=== PATIENT | male | born 1995 | race Caucasian/White ===

== ENCOUNTER 2018-07-15 11:53 | Emergency (ER) | payer OTHER, SELFPAY ==
[2018-07-15 12:01] VITALS: BP 143/79; PULSE 79; RESP 18; TEMP 36.6; O2SAT 100
--- NOTE | 2018-07-15 12:40 | PC.NURSE ---
currently denies SI/HI plan. States 'it's there all the time'. Cooperative w/ staff. Denies need / want to go to any type of detox or psychiatric treatment. a/o x 3. No acute distress.
[2018-07-15] MEDS: SODIUM CHLORIDE 0.9% 1,000 ML 1000 ML IV (12:43)
[2018-07-15 12:44] LABS: Add Manual Diff / Slide Review NO; Basophils Percent Auto 0.8 % (0-2); Eosinophils Percent Auto 1.8 % (2-4); Hematocrit 46.3 % (41-53); Hemoglobin 16.1 g/dL (13.5-17.5); Lymphocytes Percent Auto 30.8 % (25-40); Mean Corpuscular HGB Conc 34.8 % (30-36); Mean Corpuscular Hemoglobin 32.5 PG (26-34); Mean Corpuscular Volume 93.3 fL (80-100); Monocytes Percent Auto 11.2 % (3-14); Neutrophils Absolute Auto 3500 /uL (3000-5900); Neutrophils Percent Auto 55.4 % (50-75); Platelet Count 355 X10^3/uL (150-400); Red Blood Cell Count 4.96 X10^6/uL (4.5-5.9); Red Cell Distribution Width 13.3 % (11.6-14.8); White Blood Cell Count 6.4 X10^3/uL (4.5-11.0)
[2018-07-15 12:54] LABS: Alanine Aminotransferase 28 IU/L (21-72); Albumin 5.1 g/dL (3.5-5.0); Albumin Globulin Ratio 1.8 (1.0-2.8); Alkaline Phosphatase 58 U/L (38-126); Aspartate Aminotransferase 53 IU/L (17-59); Bilirubin Unconjugated 0.7 mg/dL (0.0-1.1); Blood Urea Nitrogen 12 mg/dL (9-20); Carbon Dioxide 34 mmol/L (22-32); Chloride 100 mmol/L (98-107); Estimated Glomerular Filt Rate > 60.0 mL/min (>60); Ethanol (ETOH) < 10 mg/dL; Globulin 2.9 g/dL (1.7-4.1); Glucose 88 mg/dL (70-100); HEMOLYSIS < 15 (0-50); Lipase 38 U/L (23-300); Potassium 4.1 mmol/L (3.4-5.1); Sodium 144 mmol/L (137-145)
[2018-07-15 13:08] LABS: Urine Amphetamines Negative (Negative); Urine Barbiturates Negative (Negative); Urine Benzodiazepines Negative (Negative); Urine Cocaine Negative (Negative); Urine MDMA Negative (Negative); Urine Methadone Negative (Negative); Urine Methamphetamines Negative (Negative); Urine Morphine/Opi cutoff 2000 Negative (Negative); Urine Oxycodone Negative (Negative); Urine Phencyclidine Negative (Negative); Urine Tetrahydrocannabinol Positive (Negative); Urine Tricyclic Antidepressant Negative (Negative)
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
--- NOTE | 2018-07-15 14:05 | PC.NURSE ---
Pt requesting to leave. States he has an appointment w/ Dr. Monroe who which he has a long standing relationship on Monday. Pt denies SI/HI plan stating that he has a friend he is going to stay with and would return if he felt he was going to act on any suicidal thought. Pt a/o x 3. No acute distress. Taking po food and fluids.
[2018-07-15 14:06] VITALS: BP 122/71; PULSE 88; RESP 14; O2SAT 99
== END 2018-07-15 14:09 | disposition home or self-care (01) ==
PROVIDERS: Emergency Provider Nurse Practitioner Family; Family Provider Pediatrics; PCP Pediatrics
DX: R45.851 Suicidal ideations (principal); F19.10 Other psychoactive substance abuse, uncomplicated
CPT/HCPCS: 36591; 80053; 80076; 80305; 80320; 81003; 83690; 83735; 85025; 96360; 99283; 99284

== ENCOUNTER → 2018-07-18 14:49 | Outpatient (CLI) | payer OTHER, SELFPAY ==
--- NOTE | 2018-07-18 14:51 | DI.RAD.S_ITS ---
PROCEDURE: XR RIBS LT 2V INDICATIONS: Left rib pain TECHNIQUE: 2 views of the left ribs were acquired. COMPARISON: None. FINDINGS: Surgical changes and devices: None. Bones and chest wall: No fractures or dislocations. No suspicious bony lesions. Overlying soft tissues appear unremarkable. Lungs and pleura: The visualized lung appears clear. No pleural effusions or pneumothorax are visible. IMPRESSION: No radiographically visible rib fracture seen. Dictated by: Javier Burns M.D. on 07/18/2018 at 15:52 Approved by: Javier Burns M.D. on 07/18/2018 at 15:54
--- NOTE | 2018-07-18 14:51 | DI.RAD.S_ITS ---
PROCEDURE: XR CHEST 2V INDICATIONS: Left rib pain TECHNIQUE: 2 views of the chest were acquired. COMPARISON: None. FINDINGS: Surgical changes and devices: None. Lungs and pleura: No pleural effusions or pneumothorax. Lungs are clear. Mediastinum: Mediastinal contours are normal. Heart size is normal. Bones and chest wall: No suspicious bony abnormalities. Soft tissues appear unremarkable. IMPRESSION: No acute disease. Dictated by: Javier Burns M.D. on 07/18/2018 at 15:54 Approved by: Javier Burns M.D. on 07/18/2018 at 15:55
== END ==
PROVIDERS: Family Provider Pediatrics; PCP Pediatrics; Visit Provider Internal Medicine
DX: R07.81 Pleurodynia (principal)
CPT/HCPCS: 71046; 71100

== ENCOUNTER 2018-07-19 11:28 | Emergency (ER) | payer OTHER, SELFPAY ==
[2018-07-19 11:43] VITALS: BP 154/87; PULSE 81; RESP 20; TEMP 37.1; O2SAT 96; BMI 23.6
--- NOTE | 2018-07-19 12:33 | ED.ALCOHOL ---
HPI - Alcohol <Nemo Dailey PA-C - Last Filed: 07/19/18 22:11> General Chief Complaint: Toxicology Problem Stated Complaint: alcoholic wants to detox Time Seen by Provider: 07/19/18 12:33 Source: patient Mode of arrival: ambulatory Limitations: no limitations History of Present Illness HPI narrative: This 21 year old male who has a history of anxiety, depression, and alcohol abuse comes in with his mom today requesting help with getting in to detox/rehab. He admits that he has been drinking today, states he had a shot of vodka when he woke up this morning, then has had 6-7 beers since. He states that he does not feel sick, not shaky, sweaty, has not had nausea or vomiting. He has never had seizures or needed hospitalization for ETOH symptoms. He states that he can't tell me how much he drinks in a typical day I drink so much I can not remember. He states that he also uses meth, cocaine, and THC and is a regular smoker. He has a history of some heroin and opioid use in the past as well and is up front about this. He states he is healthy other than his depression and anxiety. He has a history of suicidal ideation and admits to depression, not feeling suicidal at this moment. Related Data Home Medications Medication Instructions Recorded Confirmed No Known Home Medications 07/19/18 07/19/18 Allergies Allergy/AdvReac Type Severity Reaction Status Date / Time No Known Drug Allergies Allergy Verified 07/18/18 14:21 Review of Systems <Nemo Dailey PA-C - Last Filed: 07/19/18 22:11> Review of Systems All systems reviewed & are unremarkable except as noted in HPI and below PFSH <Nemo Dailey PA-C - Last Filed: 07/19/18 22:11> Comment: history of EtOH and multiple substance abuse Exam <Nemo Dailey PA-C - Last Filed: 07/19/18 22:11> Narrative Exam Narrative: GENERAL APPEARANCE: Patient resting comfortably, in no distress. smells mild of EtOH, no diaphoresis HEENT: PERRL, EOMI, no scleral icterus NECK: Supple LUNGS: Clear to auscultation bilaterally. HEART: Rate and rhythm regular, normal S1 and S2, no S3 or S4. ABDOMEN: Soft, nontender, nondistended, bowel sounds present x 4 quadrants EXTREMITIES: No edema, no cyanosis DERMATOLOGIC: No jaundice or exanthem NEUROLOGIC: Alert, reasonable historian. No tremulousness Initial Vital Signs Initial Vital Signs: Vital Signs Temperature 98.7 F 07/19/18 11:43 Pulse Rate 81 07/19/18 11:43 Respiratory Rate 20 07/19/18 11:43 Blood Pressure 154/87 H 07/19/18 11:43 Pulse Oximetry 96 07/19/18 11:43 <Tammy Britt DO - Last Filed: 07/20/18 08:51> Initial Vital Signs Initial Vital Signs: Vital Signs Temperature 98.7 F 07/19/18 11:43 Pulse Rate 81 07/19/18 11:43 Respiratory Rate 20 07/19/18 11:43 Blood Pressure 154/87 H 07/19/18 11:43 Pulse Oximetry 96 07/19/18 11:43 Course <Nemo Dailey PA-C - Last Filed: 07/19/18 22:11> Additional Information: Our care management/rn social services has worked on possible placement for alcohol/detox while patient is here today. Crisis Center may have an opening tonight, and he was scheduled for follow-up with his psychiatrist tomorrow. During that discussion he did admit to suicidal ideation, which he is had in the past. He states that he is actively suicidal currently. He states that he does not have a home now but does have resources for a hotel. He is not allowed in the family house at this point and does not feel that he would be safe if discharged. he states that he would consider suffocating himself, or getting drunk and starting himself on fire. he also states that he does hear voices telling him to hurt himself. Care management is currently working on mental health placement options. Our care management rn social services was able to procure placement at [facility] in [place]. Patient is here voluntarily and his parents are agreeable with driving him from here. Accepting physician Montrell Yee M.D. Patient is discharged with his parents with instructions to report immediately to [place] (admit time planned for 12 a.m.). Notes and labwork faxed to intake. Patient has had ativan while here for mild agitation at times. He has been eating, drinking, has not demonstrated any tremor, diaphoresis or other signs of acute withdrawal otherwise. He does demonstrate some impulsiveness that could possibly be indicative of bipolar disorder. He was not sure whether any history of manic depression (he said he had no history of bipolar disorder but may have had issac ). Psychiatric notes not available from any recent visits, notes from 03/09 do indicate dx anxiety disorder. I concur with rn social services that inpatient treatment is warranted and probable placement in a residential program following. Orders Ordered: Discontinued Medications Lorazepam (Ativan) 1 mg PO NOW ONE Stop: 07/19/18 13:07 Last Admin: 07/19/18 14:19 Dose: 1 mg Lorazepam (Ativan) 1 mg PO NOW ONE Stop: 07/19/18 16:25 Last Admin: 07/19/18 16:57 Dose: 1 mg Lorazepam (Ativan) 1 mg PO NOW ONE Stop: 07/19/18 19:52 Last Admin: 07/19/18 19:53 Dose: 1 mg Nicotine (Nicoderm) 21 mg TOP NOW ONE Stop: 07/19/18 13:07 Last Admin: 07/19/18 13:38 Dose: 21 mg Nicotine (Nicoderm) 21 mg TOP NOW ONE Stop: 07/19/18 16:26 Last Admin: 07/19/18 18:15 Dose: Not Given Vital Signs - 8 hr 07/19/18 18:06 07/19/18 21:38 Pulse Rate 93 H 90 Respiratory Rate 16 Blood Pressure 127/69 Blood Pressure [Right Arm] 147/69 H Pulse Oximetry 98 100 <Tammy Britt, - Last Filed: 07/20/18 08:51> Orders Ordered: Discontinued Medications Lorazepam (Ativan) 1 mg PO NOW ONE Stop: 07/19/18 13:07 Last Admin: 07/19/18 14:19 Dose: 1 mg Lorazepam (Ativan) 1 mg PO NOW ONE Stop: 07/19/18 16:25 Last Admin: 07/19/18 16:57 Dose: 1 mg Lorazepam (Ativan) 1 mg PO NOW ONE Stop: 07/19/18 19:52 Last Admin: 07/19/18 19:53 Dose: 1 mg Nicotine (Nicoderm) 21 mg TOP NOW ONE Stop: 09/27/18 13:07 Last Admin: 07/19/18 13:38 Dose: 21 mg Nicotine (Nicoderm) 21 mg TOP NOW ONE Stop: 07/19/18 16:26 Last Admin: 07/19/18 18:15 Dose: Not Given Vital Signs - 8 hr 07/19/18 18:06 07/19/18 21:38 Pulse Rate 93 H 90 Respiratory Rate 16 Blood Pressure 127/69 Blood Pressure [Right Arm] 147/69 H Pulse Oximetry 98 100 MDM - Alcohol <Nemo Dailey PA-C - Last Filed: 07/19/18 22:11> Lab Data Attestation: I reviewed the patient's lab results. Result diagrams: 07/19/18 12:20 07/19/18 12:20 Labs: Lab Results 07/19/18 07/19/18 07/19/18 Range/Units 12:00 12:00 12:20 WBC 4.6 (4.5-11.0) X10^3/uL RBC 4.68 (4.5-5.9) X10^6/uL Hgb 15.0 (13.5-17.5) g/dL Hct 43.1 (41-53) % MCV 92.2 (80-100) fL MCH 32.1 (26-34) PG MCHC 34.8 (30-36) % RDW 13.4 (11.6-14.8) % Plt Count 315 (150-400) X10^3/uL Neut % (Auto) 50.6 (50-75) % Lymph % (Auto) 37.8 (25-40) % Branch % (Auto) 8.9 (3-14) % Eos % (Auto) 1.6 L (2-4) % Baso % (Auto) 1.1 (0-2) % Neut # (Auto) 2300 L (4771-1880) /uL Sodium (137-145) mmol/L Potassium (3.4-5.1) mmol/L Chloride (98-107) mmol/L Carbon Dioxide (22-32) mmol/L BUN (9-20) mg/dL Creatinine (0.66-1.25) mg/dL Estimated GFR (>60) mL/min BUN/Creatinine Ratio (6-22) Glucose (70-100) mg/dL Calcium (8.4-10.2) mg/dL Total Bilirubin (0.2-1.3) mg/dL AST (17-59) IU/L ALT (21-72) IU/L Alkaline Phosphatase (38-126) U/L Total Protein (6.3-8.2) g/dL Albumin (3.5-5.0) g/dL Globulin (1.7-4.1) g/dL Albumin/Globulin Ratio (1.0-2.8) TSH (0.47-4.68) uIU/mL Urine Color Yellow Urine Appearance Clear Urine pH 6.0 (4.5-8.0) Ur Specific [place] <=1.005 (1.000-1.035) Urine Protein Negative (Negative) Urine Glucose (UA) Negative (Normal) g/dL Urine Ketones Negative (NEGATIVE) Urine Occult Blood Negative (Negative) Urine Nitrate Negative (Negative) Urine Bilirubin Negative (NEGATIVE) Urine Urobilinogen 0.2 (0.2) E.U./dL Ur Leukocyte Esterase Negative (NEGATIVE) Urine RBC None seen (0-5/HPF) Urine WBC None seen (0-5/HPF) Urine Bacteria None seen (None) Ur Culture Indicated? Cult not indicated Micro UA Comment Microscopic normal Urine Opiates Screen Negative (Negative) Ur Oxycodone Screen Negative (Negative) Urine Methadone Screen Negative (Negative) Ur Barbiturates Screen Negative (Negative) U Tricyclic Antidepress Negative (Negative) Ur Phencyclidine Scrn Negative (Negative) Ur Amphetamines Screen Negative (Negative) U Methamphetamines Scrn Negative (Negative) Ur MDMA Scrn (Ecstasy) Negative (Negative) U Benzodiazepines Scrn Negative (Negative) Urine Cocaine Screen Negative (Negative) U Marijuana (THC) Screen Negative (Negative) 07/19/18 07/19/18 Range/Units 12:20 12:20 WBC (4.5-11.0) X10^3/uL RBC (4.5-5.9) X10^6/uL Hgb (13.5-17.5) g/dL Hct (41-53) % MCV (80-100) fL MCH (26-34) PG MCHC (30-36) % RDW (11.6-14.8) % Plt Count (150-400) X10^3/uL Neut % (Auto) (50-75) % Lymph % (Auto) (25-40) % Branch % (Auto) (3-14) % Eos % (Auto) (2-4) % Baso % (Auto) (0-2) % Neut # (Auto) (7449-4947) /uL Sodium 145 (137-145) mmol/L Potassium 4.2 (3.4-5.1) mmol/L Chloride 104 (98-107) mmol/L Carbon Dioxide 30 (22-32) mmol/L BUN 7 L (9-20) mg/dL Creatinine 0.80 (0.66-1.25) mg/dL Estimated GFR > 60.0 (>60) mL/min BUN/Creatinine Ratio 8.8 (6-22) Glucose 93 (70-100) mg/dL Calcium 9.2 (8.4-10.2) mg/dL Total Bilirubin 0.3 (0.2-1.3) mg/dL AST 40 (17-59) IU/L ALT 24 (21-72) IU/L Alkaline Phosphatase 63 (38-126) U/L Total Protein 7.2 (6.3-8.2) g/dL Albumin 4.7 (3.5-5.0) g/dL Globulin 2.5 (1.7-4.1) g/dL Albumin/Globulin Ratio 1.9 (1.0-2.8) TSH 0.70 (0.47-4.68) uIU/mL Urine Color Urine Appearance Urine pH (4.5-8.0) Ur Specific [place] (1.000-1.035) Urine Protein (Negative) Urine Glucose (UA) (Normal) g/dL Urine Ketones (NEGATIVE) Urine Occult Blood (Negative) Urine Nitrate (Negative) Urine Bilirubin (NEGATIVE) Urine Urobilinogen (0.2) E.U./dL Ur Leukocyte Esterase (NEGATIVE) Urine RBC (0-5/HPF) Urine WBC (0-5/HPF) Urine Bacteria (None) Ur Culture Indicated? Micro UA Comment Urine Opiates Screen (Negative) Ur Oxycodone Screen (Negative) Urine Methadone Screen (Negative) Ur Barbiturates Screen (Negative) U Tricyclic Antidepress (Negative) Ur Phencyclidine Scrn (Negative) Ur Amphetamines Screen (Negative) U Methamphetamines Scrn (Negative) Ur MDMA Scrn (Ecstasy) (Negative) U Benzodiazepines Scrn (Negative) Urine Cocaine Screen (Negative) U Marijuana (THC) Screen (Negative) Point of Care Testing Breathalizer 0.03 <Tammy Britt, DO - Last Filed: 07/20/18 08:51> Lab Data Labs: Lab Results 07/19/18 07/19/18 07/19/18 Range/Units 12:00 12:00 12:20 WBC 4.6 (4.5-11.0) X10^3/uL RBC 4.68 (4.5-5.9) X10^6/uL Hgb 15.0 (13.5-17.5) g/dL Hct 43.1 (41-53) % MCV 92.2 (80-100) fL MCH 32.1 (26-34) PG MCHC 34.8 (30-36) % RDW 13.4 (11.6-14.8) % Plt Count 315 (150-400) X10^3/uL Neut % (Auto) 50.6 (50-75) % Lymph % (Auto) 37.8 (25-40) % Branch % (Auto) 8.9 (3-14) % Eos % (Auto) 1.6 L (2-4) % Baso % (Auto) 1.1 (0-2) % Neut # (Auto) 2300 L (0416-1195) /uL Sodium (137-145) mmol/L Potassium (3.4-5.1) mmol/L Chloride (98-107) mmol/L Carbon Dioxide (22-32) mmol/L BUN (9-20) mg/dL Creatinine (0.66-1.25) mg/dL Estimated GFR (>60) mL/min BUN/Creatinine Ratio (6-22) Glucose (70-100) mg/dL Calcium (8.4-10.2) mg/dL Total Bilirubin (0.2-1.3) mg/dL AST (17-59) IU/L ALT (21-72) IU/L Alkaline Phosphatase (38-126) U/L Total Protein (6.3-8.2) g/dL Albumin (3.5-5.0) g/dL Globulin (1.7-4.1) g/dL Albumin/Globulin Ratio (1.0-2.8) TSH (0.47-4.68) uIU/mL Urine Color Yellow Urine Appearance Clear Urine pH 6.0 (4.5-8.0) Ur Specific [place] <=1.005 (1.000-1.035) Urine Protein Negative (Negative) Urine Glucose (UA) Negative (Normal) g/dL Urine Ketones Negative (NEGATIVE) Urine Occult Blood Negative (Negative) Urine Nitrate Negative (Negative) Urine Bilirubin Negative (NEGATIVE) Urine Urobilinogen 0.2 (0.2) E.U./dL Ur Leukocyte Esterase Negative (NEGATIVE) Urine RBC None seen (0-5/HPF) Urine WBC None seen (0-5/HPF) Urine Bacteria None seen (None) Ur Culture Indicated? Cult not indicated Micro UA Comment Microscopic normal Urine Opiates Screen Negative (Negative) Ur Oxycodone Screen Negative (Negative) Urine Methadone Screen Negative (Negative) Ur Barbiturates Screen Negative (Negative) U Tricyclic Antidepress Negative (Negative) Ur Phencyclidine Scrn Negative (Negative) Ur Amphetamines Screen Negative (Negative) U Methamphetamines Scrn Negative (Negative) Ur MDMA Scrn (Ecstasy) Negative (Negative) U Benzodiazepines Scrn Negative (Negative) Urine Cocaine Screen Negative (Negative) U Marijuana (THC) Screen Negative (Negative) 07/19/18 07/19/18 Range/Units 12:20 12:20 WBC (4.5-11.0) X10^3/uL RBC (4.5-5.9) X10^6/uL Hgb (13.5-17.5) g/dL Hct (41-53) % MCV (80-100) fL MCH (26-34) PG MCHC (30-36) % RDW (11.6-14.8) % Plt Count (150-400) X10^3/uL Neut % (Auto) (50-75) % Lymph % (Auto) (25-40) % Branch % (Auto) (3-14) % Eos % (Auto) (2-4) % Baso % (Auto) (0-2) % Neut # (Auto) (6916-5185) /uL Sodium 145 (137-145) mmol/L Potassium 4.2 (3.4-5.1) mmol/L Chloride 104 (98-107) mmol/L Carbon Dioxide 30 (22-32) mmol/L BUN 7 L (9-20) mg/dL Creatinine 0.80 (0.66-1.25) mg/dL Estimated GFR > 60.0 (>60) mL/min BUN/Creatinine Ratio 8.8 (6-22) Glucose 93 (70-100) mg/dL Calcium 9.2 (8.4-10.2) mg/dL Total Bilirubin 0.3 (0.2-1.3) mg/dL AST 40 (17-59) IU/L ALT 24 (21-72) IU/L Alkaline Phosphatase 63 (38-126) U/L Total Protein 7.2 (6.3-8.2) g/dL Albumin 4.7 (3.5-5.0) g/dL Globulin 2.5 (1.7-4.1) g/dL Albumin/Globulin Ratio 1.9 (1.0-2.8) TSH 0.70 (0.47-4.68) uIU/mL Urine Color Urine Appearance Urine pH (4.5-8.0) Ur Specific [place] (1.000-1.035) Urine Protein (Negative) Urine Glucose (UA) (Normal) g/dL Urine Ketones (NEGATIVE) Urine Occult Blood (Negative) Urine Nitrate (Negative) Urine Bilirubin (NEGATIVE) Urine Urobilinogen (0.2) E.U./dL Ur Leukocyte Esterase (NEGATIVE) Urine RBC (0-5/HPF) Urine WBC (0-5/HPF) Urine Bacteria (None) Ur Culture Indicated? Micro UA Comment Urine Opiates Screen (Negative) Ur Oxycodone Screen (Negative) Urine Methadone Screen (Negative) Ur Barbiturates Screen (Negative) U Tricyclic Antidepress (Negative) Ur Phencyclidine Scrn (Negative) Ur Amphetamines Screen (Negative) U Methamphetamines Scrn (Negative) Ur MDMA Scrn (Ecstasy) (Negative) U Benzodiazepines Scrn (Negative) Urine Cocaine Screen (Negative) U Marijuana (THC) Screen (Negative) Point of Care Testing Breathalizer 0.03 Discharge Plan Departure Patient Disposition: Released, Other Clinical Impression: Suicidal thoughts, Substance abuse Discharge Date/Time: 07/19/18 21:40 Interventions: ED Discharge Assessment Last Done: 07/19/18 21:38 Instructions: DI for Alcohol Abuse, DI for Suicidal Ideation-Adult Activity Restrictions/Additional Instructions: Please go straight to [facility] facility at [address] in [place]. Your admitting provider is Dr. Montrell Yee. We have faxed your labwork and other information to their intake department already. Prescriptions: No Action No Known Home Medications RF: 0 Referrals: Jni Pabon MD [Physician] - Dilip Morelos DO [Physician] - Stand Alone Forms: Against Medical Advice <Tammy Britt DO - Last Filed: 07/20/18 08:51> Cosign ED Attending Steveature Attestation: I was immediately available in the department for consultation. Documentation has been reviewed. I agree with assessment and plan.
[2018-07-19 12:43] LABS: Add Manual Diff / Slide Review NO; Basophils Percent Auto 1.1 % (0-2); Eosinophils Percent Auto 1.6 % (2-4); Hematocrit 43.1 % (41-53); Lymphocytes Percent Auto 37.8 % (25-40); Mean Corpuscular HGB Conc 34.8 % (30-36); Mean Corpuscular Hemoglobin 32.1 PG (26-34); Mean Corpuscular Volume 92.2 fL (80-100); Monocytes Percent Auto 8.9 % (3-14); Neutrophils Absolute Auto 2300 /uL (3000-5900); Neutrophils Percent Auto 50.6 % (50-75); Platelet Count 315 X10^3/uL (150-400); Red Blood Cell Count 4.68 X10^6/uL (4.5-5.9); Red Cell Distribution Width 13.4 % (11.6-14.8); White Blood Cell Count 4.6 X10^3/uL (4.5-11.0)
[2018-07-19 12:57] LABS: Alanine Aminotransferase 24 IU/L (21-72); Albumin 4.7 g/dL (3.5-5.0); Albumin Globulin Ratio 1.9 (1.0-2.8); Alkaline Phosphatase 63 U/L (38-126); Aspartate Aminotransferase 40 IU/L (17-59); BUN Creatinine Ratio 8.8 (6-22); Bilirubin Total 0.3 mg/dL (0.2-1.3); Blood Urea Nitrogen 7 mg/dL (9-20); Calcium 9.2 mg/dL (8.4-10.2); Carbon Dioxide 30 mmol/L (22-32); Chloride 104 mmol/L (98-107); Estimated Glomerular Filt Rate > 60.0 mL/min (>60); Globulin 2.5 g/dL (1.7-4.1); Glucose 93 mg/dL (70-100); HEMOLYSIS 15 (0-50); Potassium 4.2 mmol/L (3.4-5.1); Sodium 145 mmol/L (137-145); Total Protein 7.2 g/dL (6.3-8.2)
[2018-07-19 13:38] LABS: Bacteria Urine None Seen; RBC Urine None Seen (0-5/HPF); WBC Urine None Seen (0-5/HPF)
[2018-07-19] MEDS: NICOTINE 21 MG PATCH TOP (13:38)
--- NOTE | 2018-07-19 13:39 | PC.NURSE ---
pt refuses po ativan, states im not in DTs
[2018-07-19 13:40] LABS: Appearance Urine UA CLEAR; Bilirubin Urine UA NEGATIVE (NEGATIVE); Color Urine UA YELLOW; Glucose Urine UA NEGATIVE (Normal); Ketones Urine UA NEGATIVE (NEGATIVE); Leukocyte Esterase Urine UA NEGATIVE (NEGATIVE); Nitrite Urine UA Negative (Negative); Occult Blood Urine UA NEGATIVE (Negative); Protein Urine UA NEGATIVE (Negative); Specific Gravity Urine UA <=1.005 (1.000-1.035); Urobilinogen Urine UA 0.2 E.U./dL (0.2)
[2018-07-19 13:45] LABS: Urine Cocaine Negative (Negative); Urine Morphine/Opi cutoff 2000 Negative (Negative); Urine Tetrahydrocannabinol Negative (Negative)
[2018-07-19 13:46] LABS: Urine Amphetamines Negative (Negative); Urine Barbiturates Negative (Negative); Urine Benzodiazepines Negative (Negative); Urine MDMA Negative (Negative); Urine Methadone Negative (Negative); Urine Methamphetamines Negative (Negative); Urine Oxycodone Negative (Negative); Urine Phencyclidine Negative (Negative); Urine Tricyclic Antidepressant Negative (Negative)
[2018-07-19 13:48] LABS: Culture Indicated Urine Cult Not Indicated; Urine Comments Microscopic Normal
[2018-07-19] MEDS: LORazepam 0.5 MG TABLET 1 MG PO ×3 (14:19→19:53)
--- NOTE | 2018-07-19 15:05 | PC.NURSE ---
pt returned to department with parents, discharge undone at request of charge nurse
--- NOTE | 2018-07-19 15:14 | CM.SWNOTE ---
Addendum entered by LUI Lee 07/19/18 19:14: Pt has been accepted at [facility], [address], [place] [address]. Family to transport via POV. Authorization number is # [id number] Original Note: Addendum entered by LUI Lee 07/19/18 17:44: Bed Search: [facility] has contacted [facility] [phone]. Initially this was for detox and later updated them about pt having Si with a plan. They do not have any openings until possibly late this evening. Pt's mother and RN are aware to call them later this evening. [facility] called [facility] behavioral health unit. no beds [facility] [phone] Initally pt had an assessment appointment this evening for 6 PM. At that time the pt's mother had wanted pt to go into a detox and pt was moderately agreeable. This was cancelled as pt needed to have a primary MH dx. and [facility]. At that time, pt was too belligerent to speak to [facility]. I did not know if he had a MH dx and was unable to assess for safety. Since pt has now discussed his mental health hx and spoken of SI and plan, he is being reassessed by [facility] [phone] ask for intake. Information has been faxed. They have a male bed. Awaiting answer. Original Note: Addendum entered by LUI Lee 07/19/18 16:29: safety concerns: [facility] inquired if pt had any suicidal thoughts and if he was safe to return home. He initially was very vague and said that he might be ok with ativan. When asked if he had thougths of wanting tokillhimself , he said maybe. [facility] returned to the room with Nemo Dailey P.A-C. Pt acknowledged that he was not safe at this time. When asked by this BREAKFAST HOSTESS if he had specific thougths of a plan, he stated that he could take a garbage bag and put it over his head and tape it, or drink a bunch of alcohol and set himself on fire. According to pt's mother, he has a dx of Major Depression, severe and anxiety. He has refused to take medication for his depression, but appears to use alcohol to self-medicate. Plan: Given that pt has acknowledged SI, [facility] is now searching for psychiatric beds. Original Note: ED BREAKFAST HOSTESS NOTE Presenting problem: According to pt's mother, pt drinks a fifth of hard liquor daily and has been donig this for the past 5 months. He began drinking in high school, went away to [employer] for college and dropped out. Since that time, he has been drinking on a regular basis. 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 Pt has been kicked out of his parent's home due to his drinking. Mental Status: Pt is a think man appearing his stated age. Eye contact is poor; he is unkempt and very inpatient. Mood, unable to assess) but mother stated he has had periods of SI. Affect is irritable and angry and he has walked out of the emergency department several times. Plan: Pt stated he wants detox. [facility] is attempting to find placement. Discharge Planning/Care Management ED Crisis Response Assessment Start: 07/19/18 15:11 Freq: Status: Active Protocol: Document 07/19/18 15:11 (Rec: 07/19/18 15:14 [id number]) ED Crisis Response Assessment BREAKFAST HOSTESS Assessment Type Substance Abuse Reason for BREAKFAST HOSTESS Referral Pt came in with family requesting detox. Referred by ED staff Presenting Problem FRONT DESK PERSON was initially told that pt had an appt at [address] [facility] and family would transport. ED SW called to confirm and was informed that pt's mother had cancelled the appointment after learning that pt most likely would not be accepted. [facility] intake stated that they are a dual dx with primary being mental health. Pt has not been willing to speak with [facility] other than a few statements, so I have been unable to assess. Mental health diagnosis Other to pt's mother her son has a dx of depression and anxiety. Current Risk factors Substance abuse Financial difficulties Crisis Plan [facility] is attempting to find a detox facility for this patient.
--- NOTE | 2018-07-19 15:28 | PC.NURSE ---
1528 pt again seen exiting department by admissions staff
--- NOTE | 2018-07-19 15:40 | PC.NURSE ---
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
[2018-07-19 18:06] VITALS: BP 147/69; PULSE 93; O2SAT 98
--- NOTE | 2018-07-19 18:16 | PC.NURSE ---
pt at nurses station, states do you guys have some lubrication? I want to rub one out, deferred to mother.
[2018-07-19 21:38] VITALS: BP 127/69; PULSE 90; RESP 16; O2SAT 100
--- NOTE | 2018-07-23 12:55 | CM.DPC ---
Call received from patient's mother, Ruthann Avalos asking about process for getting Hunter into residential care after he is discharged from [facility]. Recommended that Ruthann contact Hunter's nurse case manager at [facility] as they will be working on developing a discharge plan. Ruthann indicated that Hunter had a nurse case manager over the weekend. Assured Ruthann that she follow up with the nurse case manager and help facilitate a discharge to a residential facility if that is the recommendation.
== END 2018-07-19 21:40 | disposition home or self-care (01) ==
PROVIDERS: Emergency Provider Internal Medicine; Family Provider Pediatrics; PCP Pediatrics
DX: F10.10 Alcohol abuse, uncomplicated (principal); R45.851 Suicidal ideations
CPT/HCPCS: 80053; 80305; 81001; 82075; 84443; 85025; 99281; 99283

== ENCOUNTER 2019-07-24 03:07 | Emergency (ER) | payer OTHER, SELFPAY ==
[2019-07-24 03:11] VITALS: BP 145/95; PULSE 90; RESP 16; TEMP 36.3; O2SAT 97
--- NOTE | 2019-07-24 03:18 | ED_ITS ---
HPI - Medical Clearance General Chief complaint: Medical Clearance Stated complaint: Fit for prison Time Seen by Provider: 07/24/19 03:17 Source: patient Mode of arrival: other (Police) Limitations: no limitations History of Present Illness HPI Narrative: The patient arrives in custody of police. He is in cuffs, he has been arrested. He is alert and cooperative. He is no complaints of chronic illness. He is on no medications. He denies headache, chest pain or difficulty breathing. He has no GI symptoms. He has no mechanical pain than the wrist pain from wearing cuff. He has no medical concerns. Related Information Previous Rx's Medication Instructions Recorded propranolol 20 mg tablet 20 mg PO TID #30 tab 07/15/19 trazodone 50 mg tablet 100 mg PO BEDTIME PRN #60 tab 07/15/19 Allergies Allergy/AdvReac Type Severity Reaction Status Date / Time No Known Drug Allergies Allergy Verified 07/15/19 15:18 Review of Systems Review of Systems ROS Unobtainable: All systems reviewed & are unremarkable except as noted in HPI and below Constitutional Constitutional: Denies fever(s), Denies headache(s) and Denies weakness Eyes Eyes: Denies blurry vision and Denies change in vision ENT Ears, Nose, Mouth, and Throat: Denies headache(s) Comments: No ENT complaints Cardiovascular Cardiovascular: Denies chest pain, Denies syncope and Denies dyspnea Respiratory Respiratory: Denies cough and Denies dyspnea Gastrointestinal Gastrointestinal: Denies abdominal pain and Denies vomiting Musculoskeletal Musculoskeletal: Reports as per HPI Comments: Wrist pain only Integumentary/Breasts Skin/Breast: Denies pruritus, Denies erythema, Denies rash and Denies wounds Neurologic Neurologic: Denies syncope, Denies headache(s) and Denies weakness [facility] Medical History Alcohol abuse (Chronic) Anxiety with depression (Chronic) Multiple substance abuse (Chronic) Surgical History History of hand surgery (Resolved) Social History Smoking Status: Current every day smoker Social History Smoking Status: Current every day smoker Exam Initial Vital Signs Initial Vital Signs: Vital Signs Temperature 97.4 F L 07/24/19 03:11 Pulse Rate 90 07/24/19 03:11 Respiratory Rate 16 07/24/19 03:11 Blood Pressure 145/95 H 07/24/19 03:11 Pulse Oximetry 97 07/24/19 03:11 Const General: cooperative and well developed Nutritional Appearance: well nourished Orientation: alert, awake, oriented x3 and not confused [facility] Head: normocephalic and atraumatic Eyes General: appearance normal, both eyes and all related structures Eyelids: eyelids normal Conjunctivae: conjunctivae normal Sclera: sclerae normal Pupils: PERRL EOM: EOM intact bilaterally Neck Neck: No tender Resp Effort & Inspection: normal respiratory effort and able to speak in complete sentences Auscultation: clear to auscultation bilaterally, no rales, no rhonchi and no wheezes Cardio Rate: regular rate Rhythm: regular rhythm Heart Sounds: S1 normal, S2 normal, no click, no gallops, no murmurs and no rubs Pulses: normal peripheral pulses GI Inspection: non-distended Palpation: soft, no hepatosplenomegaly, No guarding, No pulsatile mass and No tender Auscultation: normal bowel sounds Skin General: no rashes or lesions noted, No jaundice and No petechiae Neuro General: alert, oriented x3, gait normal and no focal motor deficits Speech: speech normal Extrem General: full ROM, no clubbing, cyanosis or edema, no pedal edema and no calf tenderness Other: He is cuffed, no abnormalities noted. Psych Appearance: well kempt Mental Status: mental status grossly normal Attitude: cooperative Thought Content: normal MDM - Medical Clearance MDM Narrative Medical decision making narrative: The patient has no medical issues inhibiting incarceration. He is released with the police. Discharge Plan Departure Patient Disposition: Released, Other Clinical Impression: Medical clearance for incarceration, Elevated blood pressure reading Discharge Date/Time: 07/24/19 03:42 Instructions: Essential Hypertension Activity Restrictions/Additional Instructions: The blood pressure reading this evening is elevated, follow up with her doctor for further evaluation. Stand Alone Forms: Work Release Note
== END 2019-07-24 03:42 | disposition home or self-care (01) ==
LOC: ED 03:39
PROVIDERS: Emergency Provider Emergency Medicine; Family Provider Pediatrics; PCP Pediatrics
DX: Z00.8 Encounter for other general examination (principal)
CPT/HCPCS: 99282

== ENCOUNTER 2020-01-25 16:03 | Emergency (ER) | payer BC, SELFPAY ==
[2020-01-25 16:11] VITALS: BP 155/83; PULSE 86; RESP 16; TEMP 36.9; O2SAT 100; BMI 23.7
--- NOTE | 2020-01-25 16:26 | PC.NURSE ---
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 denies fever,coughing,nausea or vomiting, and not getting treated with tyl or nsaids. +smoker 1ppd, concern for throat cancer. alert and awake speaks in full sentence, and appropriate skin warm dry pink
--- NOTE | 2020-01-25 16:57 | ED.URI ---
HPI - URI/Sore Throat <NNEKA Jauregui - Last Filed: 01/25/20 17:05> General Chief Complaint: Upper Respiratory Symptoms Stated Complaint: sore throat, trouble swallowing about a week Time Seen by Provider: 01/25/20 16:10 Source: patient Mode of arrival: Ambulatory Limitations: no limitations History of Present Illness HPI Narrative: Male current smoker who denies pertinent medical history presents with a chief complaint of a sore throat for 1 week. He states he feels like he is having painful swallowing. He does state that he has been exposed to mcdaniel virus through his work. He denies any cough, fever, congestion. He states he has slight shortness of breath, but thinks that might be related to his throat pain. He has not taken anything at home to feel better. Related Data Previous Rx's Medication Instructions Recorded propranolol 20 mg tablet 20 mg PO TID #30 tab 07/15/19 trazodone 50 mg tablet 100 mg PO BEDTIME PRN #60 tab 07/15/19 Allergies Allergy/AdvReac Type Severity Reaction Status Date / Time No Known Drug Allergies Allergy Verified 07/15/19 15:18 Review of Systems <NNEKA Jauregui - Last Filed: 01/25/20 17:05> Review of Systems Narrative: GENERAL: Denies chills, fatigue, malaise, fever, sweats. HEENT: See HPI RESPIRATORY: Denies dyspnea, cough, wheezing, hemoptysis, sputum. CARDIOVASCULAR: Denies chest pain, palpitations, orthopnea, edema, GASTROINTESTINAL: Denies nausea, vomiting, abdominal pain, diarrhea, constipation, melena. : Denies dysuria, frequency, incontinence, hematuria, urinary retention. MUSCULOSKELETAL: denies weakness, joint pain, or bony pain SKIN: Denies rash, skin lesions, or other NEUROLOGIC: Denies weakness, headache, numbness, change in speech, confusion, seizures, incoordination. PSYCHIATRIC: No concerning psychosocial issues. 12 point review of systems is negative except for those stated above Patient History <NNEKA Jauregui - Last Filed: 01/25/20 17:05> Medical History Alcohol abuse (Chronic) Anxiety with depression (Chronic) Multiple substance abuse (Chronic) Surgical History History of hand surgery (Resolved) Social History Smoking Status: Current every day smoker Smoking Status: Current every day smoker tobacco type: cigarettes alcohol intake frequency: a few times a month Substance Use Type: does not use Exam <NNEKA Jauregui - Last Filed: 01/25/20 17:05> Narrative Exam Narrative: GENERAL: This is a well-nourished, well-developed patient, in no acute distress HEAD: Atraumatic. Normocephalic. No temporal or scalp tenderness. EYES: Pupils equal round and reactive. Extraocular motions intact. No scleral icterus. No injection or drainage. ENT: Nose without bleeding, purulent drainage or septal hematoma. Throat without erythema, tonsillar hypertrophy or exudate. Uvula midline. Airway patent. Bilateral TMs pearly gamble. NECK: Trachea midline. No JVD or lymphadenopathy. Supple, nontender, no meningeal signs. CARDIOVASCULAR: Regular rate and rhythm without murmurs, gallops, or rubs. RESPIRATORY: Clear to auscultation. Breath sounds equal bilaterally. No wheezes, rales, or rhonchi. No cough. No increased respiratory effort. No accessory muscle use. Speaking full sentences while lying in bed. GASTROINTESTINAL: Abdomen soft, non-tender, nondistended. No hepato-splenomegaly, or palpable masses. No guarding. EXTREMITIES: No clubbing, cyanosis, or edema. No joint tenderness, effusion, or edema noted. BACK: Nontender without deformity or crepitance. No flank tenderness. NEURO: AOx3. SKIN: No rash or erythema on visible skin Initial Vital Signs Initial Vital Signs: Vital Signs Temperature 98.5 F 01/25/20 16:11 Pulse Rate 86 01/25/20 16:11 Respiratory Rate 16 01/25/20 16:11 Blood Pressure 155/83 H 01/25/20 16:11 Pulse Oximetry 100 01/25/20 16:11 <Arben Oliver DO - Last Filed: 01/25/20 17:22> Initial Vital Signs Initial Vital Signs: Vital Signs Temperature 98.5 F 01/25/20 16:11 Pulse Rate 86 01/25/20 16:11 Respiratory Rate 16 01/25/20 16:11 Blood Pressure 155/83 H 01/25/20 16:11 Pulse Oximetry 100 01/25/20 16:11 Course <NNEKA Jauregui - Last Filed: 01/25/20 17:05> Orders Ordered: ED Orders 01/25/20 16:15 Throat Culture Stat Vital Signs Vital signs: Vital Signs - 8 hr 01/25/20 16:11 01/25/20 17:12 Temperature 98.5 F 99.5 F Pulse Rate 86 72 Respiratory Rate 16 16 Blood Pressure 155/83 H 144/65 H Pulse Oximetry 100 99 <Arben Oliver DO - Last Filed: 01/25/20 17:22> Orders Ordered: ED Orders 01/25/20 16:15 Throat Culture Stat Vital Signs Vital signs: Vital Signs - 8 hr 01/25/20 16:11 01/25/20 17:12 Temperature 98.5 F 99.5 F Pulse Rate 86 72 Respiratory Rate 16 16 Blood Pressure 155/83 H 144/65 H Pulse Oximetry 100 99 MDM - URI/Sore Throat <NNEKA Jauregui - Last Filed: 01/25/20 17:05> Differential Diagnosis Differential diagnosis: Likely upper respiratory infection, otitis media, sinusitis and viral infection Lab Data Labs: Point of Care Testing Rapid Strep A Negative MDM Narrative Medical decision making narrative: The patient is a 24-year-old male who presents with a chief complaint of a sore throat for a week. Had rapid strep is negative. Throat culture is pending. Given his exposure we elected to do carotid virus testing. This is pending as well. Discussed self quarantine in the meantime. Discussed that it can take a most week for results to come back. Encouraged follow-up with primary care provider come back to the emergency department for any acute concerns. The patient has no signs of systemic illness in the emergency department, is afebrile, speaking well and alert and appropriate. <Arben Oliver DO - Last Filed: 01/25/20 17:22> Lab Data Labs: Point of Care Testing Rapid Strep A Negative Discharge Plan Departure Patient Disposition: Home Clinical Impression: Acute sore throat Upper respiratory infection Qualifiers: URI type: unspecified viral URI Qualified Code(s): J06.9 - Acute upper respiratory infection, unspecified Discharge Date/Time: 01/25/20 17:14 Instructions: DI for Viral Pharyngitis Activity Restrictions/Additional Instructions: Thank you for trusting us with your care today Your rapid strep came back negative. However we have a throat culture pending. This will result in 2-3 days. In the meantime please use [id number] measures as needed and able such as Tylenol, Motrin etcetera Given your symptoms with your exposure, we have elected to test you for mcdaniel virus This can take up to a week to result. We will call you regarding this appear test is positive or negative. *What to do: * per recommendations from the CDC and the [facility] Department of Health * stay home except to get medical care. Restrict activities outside your home, except for getting medical care. Do not go to work, school, or public areas. Avoid using public transportation, ride sharing, or taxis. * separate yourself from other people in your home. * call ahead before visiting your doctor * Wear a face mask * Cover your coughs and sneezes * Clean your hands often * Avoid sharing household items * Clean all high-touch services every day * Monitor your symptoms and seek prompt medical attention if your illness is worsening, particularly with difficulty in breathing. Please follow-up with primary care provider Please come back to the emergency department for any acute concerns Prescriptions: No Action propranolol 20 mg tablet 20 mg PO TID Qty: 30 RF: 1 trazodone 50 mg tablet 100 mg PO BEDTIME PRN (Reason: insomnia) Qty: 60 RF: 2 Referrals: Renzo Bojorquez MD [Primary Care Provider] - Stand Alone Forms: Work Release Note <Arben Oliver DO - Last Filed: 01/25/20 17:22> [facility] Dr Oliver Co-Sign Statement: I was available for consultation during this patient's emergency department visit. This chart is signed by myself for administrative purposes only. I did not have direct contact with this patient during this visit. They were seen independently by the APC.
[2020-01-25 17:12] VITALS: BP 144/65; PULSE 72; RESP 16; TEMP 37.5; O2SAT 99
[2020-01-27 08:41] LABS: COVID19 Sendout Not Detected (Not Detected)
== END 2020-01-25 17:14 | disposition home or self-care (01) ==
PROVIDERS: Emergency Provider Nurse Practitioner Family; Family Provider Pediatrics; PCP Pediatrics
DX: J06.9 Acute upper respiratory infection, unspecified (principal); J02.9 Acute pharyngitis, unspecified
CPT/HCPCS: 87070; 87635; 87880; 99282

== ENCOUNTER 2021-07-30 10:35 | Emergency (ER) | payer BC, SELFPAY ==
--- NOTE | 2021-07-30 10:57 | PC.NURSE ---
Visualized upon entry to ED w/ registration. No acute distress. Easy work of breathing. Skin pink/dry. Called @ 1055. No answer from [facility].
[2021-07-30 11:14] VITALS: BP 135/87; PULSE 84; RESP 18; TEMP 36.6; O2SAT 99; BMI 26.4
--- NOTE | 2021-07-30 11:21 | DI.RAD.S_ITS ---
PROCEDURE: XR CHEST 1V INDICATIONS: chest pain TECHNIQUE: One view of the chest was acquired. COMPARISON: [facility], CR, XR CHEST 2V, 07/18/2018, 14:57. FINDINGS: Surgical changes and devices: None. Lungs and pleura: Lungs are clear. No pleural effusions or pneumothorax. Mediastinum: Mediastinal contours appear normal. Heart size is normal. Bones and chest wall: No suspicious bony lesions. Overlying soft tissues appear unremarkable. IMPRESSION: Portable chest within normal limits. Dictated by: Jim Gallagher M.D. on 07/30/2021 at 11:07 Approved by: Jim Gallagher M.D. on 07/30/2021 at 11:07
[2021-07-30 11:50] LABS: COVID19 -Nasal RAPID Negative (Negative)
[2021-07-30 12:00] LABS: Prothrombin Time 10.8 SECONDS (10.1-12.7)
[2021-07-30 12:02] LABS: Add Manual Diff / Slide Review NO; Basophils Absolute Auto 0 /uL (0-100); Basophils Percent Auto 0.8 % (0-2); Eosinophils Absolute Auto 300 /uL (0-450); Eosinophils Percent Auto 5.1 % (2-4); Hematocrit 50.4 % (41-53); Hemoglobin 17.2 g/dL (13.5-17.5); Lymphocytes Absolute Auto 2200 /uL (1100-4500); Lymphocytes Percent Auto 36.7 % (25-40); Mean Corpuscular HGB Conc 34.1 % (30-36); Mean Corpuscular Hemoglobin 30.7 PG (26-34); Mean Corpuscular Volume 90.2 fL (80-100); Monocytes Absolute Auto 500 /uL (0-900); Monocytes Percent Auto 8.9 % (3-14); Neutrophils Absolute Auto 2900 /uL (1500-7000); Neutrophils Percent Auto 48.5 % (50-75); Platelet Count 294 X10^3/uL (150-400); Red Blood Cell Count 5.58 X10^6/uL (4.5-5.9); Red Cell Distribution Width 13.6 % (11.6-14.8)
[2021-07-30 12:03] LABS: PTT Partial Thromboplastin Tim 32 SECONDS (26.4-36.2)
[2021-07-30 12:04] LABS: Alanine Aminotransferase 17 IU/L (<50); Albumin 5.4 g/dL (3.5-5.0); Albumin Globulin Ratio 1.7 (1.0-2.8); Alkaline Phosphatase 63 U/L (38-126); Aspartate Aminotransferase 44 IU/L (17-59); BUN Creatinine Ratio 9.5 (6-22); Bilirubin Total 0.7 mg/dL (0.2-1.3); Blood Urea Nitrogen 9 mg/dL (9-20); Calcium 9.6 mg/dL (8.4-10.2); Carbon Dioxide 29 mmol/L (22-32); Chloride 102 mmol/L (98-107); Creatine Kinase 555 U/L (55-170); Estimated Glomerular Filt Rate > 60.0 mL/min (>60); Globulin 3.2 g/dL (1.7-4.1); Glucose 98 mg/dL (70-100); HEMOLYSIS < 15 (0-50); Lipase 34 U/L (23-300); Magnesium 2.1 mg/dL (1.6-2.3); Potassium 3.9 mmol/L (3.4-5.1); Sodium 141 mmol/L (137-145); Total Protein 8.6 g/dL (6.3-8.2)
[2021-07-30 12:15] LABS: Troponin I < 0.012 ng/mL (0.01-0.034)
[2021-07-30 12:19] LABS: CKMB % Relative Index 0.7 % (1.5-5.0); Creatine Kinase MB 4.16 ng/mL (<2.37)
--- NOTE | 2021-07-30 12:20 | ED_ITS ---
HPI - Chest Pain <Steven Douglas PA-C - Last Filed: 07/30/21 19:51> General Chief Complaint: Chest Pain Stated Complaint: chest pain x2 days Time Seen by Provider: 07/30/21 12:07 Source: patient Mode of arrival: Ambulatory Limitations: no limitations History of Present Illness HPI narrative: Hunter presents today with chief complaint of chest discomfort and elevated blood pressure that has been going on for the last 2 days. 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 He denies any significant difficulty breathing, fever, abdominal pain, nausea, vomiting, exertional symptoms, cough, sore throat, sinus congestion, lower extremity swelling or edema, recent surgeries, history of blood clots. He is otherwise healthy and does not have any other significant past medical problems. He denies any other acute concerns or complaints at this time. Patient endorses methamphetamine use approximately 3 days ago. Related Data Home Medications Medication Instructions Recorded Confirmed No Known Home Medications 07/30/21 07/30/21 Allergies Allergy/AdvReac Type Severity Reaction Status Date / Time No Known Drug Allergies Allergy Verified 07/30/21 11:20 Review of Systems <Steven Douglas PA-C - Last Filed: 07/30/21 19:51> Review of Systems Narrative: As per HPI Patient History <Steven Douglas PA-C - Last Filed: 07/30/21 19:51> Medical History (Updated 07/30/21 @ 13:56 by Steven Douglas PA-C) Alcohol abuse Anxiety with depression Multiple substance abuse Surgical History History of hand surgery Social History Smoking Status: Current every day smoker Smoking Status: Current every day smoker tobacco type: cigarettes alcohol intake frequency: a few times a month Substance Use Type: does not use Exam <Steven Douglas PA-C - Last Filed: 07/30/21 19:51> Narrative Exam Narrative: Exam Narrative: Const General: cooperative, healthy appearing, comfortable, no acute distress, well developed and well groomed Nutritional Appearance: average body habitus Orientation: alert and oriented x3 HENMT Head: normal to inspection and atraumatic Ears: hearing grossly normal bilaterally Nose: external nose normal and nares normal Face and sinus: normal facial exam Neck Neck: normal visual inspection and supple Resp Effort & Inspection: normal respiratory effort, able to speak in complete sentences, no audible wheezes, not labored, no nasal flaring and no respiratory distress, clear to auscultation bilaterally Cardiac Regular rate and rhythm, no discernible murmurs, rubs or gallops Chest Slight left upper chest soft tissue tenderness near pectoral muscle. No overlying skin abnormalities. GI Normal bowel sounds, nondistended, no masses, nontender to palpation. Neuro General: alert, oriented x3, gait normal, tone normal and moves all extremities Cognition: normal cognition Speech: speech normal Gait: normal gait Psych Appearance: grossly normal and well kempt Mental Status: mental status grossly normal Speech and Movement: speech and movement normal Mood: congruent mood Affect: normal affect Initial Vital Signs Initial Vital Signs: Vital Signs Temperature 97.8 F 07/30/21 11:14 Pulse Rate 84 07/30/21 11:14 Respiratory Rate 18 07/30/21 11:14 Blood Pressure 135/87 07/30/21 11:14 Pulse Oximetry 99 07/30/21 11:14 <Alea Wong DO - Last Filed: 08/05/21 00:48> Initial Vital Signs Initial Vital Signs: Vital Signs Temperature 97.8 F 07/30/21 11:14 Pulse Rate 84 07/30/21 11:14 Respiratory Rate 18 07/30/21 11:14 Blood Pressure 135/87 07/30/21 11:14 Pulse Oximetry 99 07/30/21 11:14 Scores <Steven Douglas PA-C - Last Filed: 07/30/21 19:51> HEART Score Heart Score history: Slightly Suspicious Heart Score EKG: Normal Heart Score Age: < 45 years old Heart Score risk factors: No known risk factors Heart Score troponin: < or = to normal limit Heart Score Total: 0 Wells' Criteria for PE Clinical signs and symptoms of DVT: No PE is #1 Dx or equally likely: No Heart rate > 100: No Immobilization at least 3 days or surg in previous 4 weeks: No History of PE or DVT: No Hemoptysis: No Malignancy w/Treatment within 6 months or palliative: No Wells' PE Score total: 0 <DO Maurilio Osborn Last Filed: 08/05/21 00:48> HEART Score Heart Score Total: 0 Wells' Criteria for PE Wells' PE Score total: 0 Course <Steven Douglas PA-C - Last Filed: 07/30/21 19:51> Orders Ordered: ED Orders 07/30/21 11:21 XR chest 1V Stat EKG-12 Lead Stat 07/30/21 11:30 COVID19 -Nasal swab/Pre-Proc Stat Complete Blood Count AUTO DIFF Stat Comprehensive Metabolic Panel Stat Lipase Stat Magnesium Stat Partial Thromboplastin Time Stat Prothrombin Time INR Stat Troponin & CK Cardiac Panel Stat 07/30/21 12:32 EC echo limited Stat Vital Signs Vital signs: Vital Signs - 8 hr 07/30/21 12:36 07/30/21 13:00 07/30/21 13:28 Pulse Rate 85 74 79 Respiratory Rate 17 17 Blood Pressure 132/86 132/86 122/69 Pulse Oximetry 98 100 97 07/30/21 13:30 07/30/21 14:00 Pulse Rate 77 75 Respiratory Rate 14 20 Blood Pressure 112/70 123/83 Pulse Oximetry 99 98 <Alea Wong DO - Last Filed: 08/05/21 00:48> Orders Ordered: ED Orders 07/30/21 11:21 XR chest 1V Stat EKG-12 Lead Stat 07/30/21 11:30 COVID19 -Nasal swab/Pre-Proc Stat Complete Blood Count AUTO DIFF Stat Comprehensive Metabolic Panel Stat Lipase Stat Magnesium Stat Partial Thromboplastin Time Stat Prothrombin Time INR Stat Troponin & CK Cardiac Panel Stat 07/30/21 12:32 EC echo limited Stat Vital Signs Vital signs: Vital Signs - 8 hr 07/30/21 12:36 07/30/21 13:00 07/30/21 13:28 Pulse Rate 85 74 79 Respiratory Rate 17 17 Blood Pressure 132/86 132/86 122/69 Pulse Oximetry 98 100 97 07/30/21 13:30 07/30/21 14:00 Pulse Rate 77 75 Respiratory Rate 14 20 Blood Pressure 112/70 123/83 Pulse Oximetry 99 98 MDM - Chest Pain <Steven Douglas PA-C - Last Filed: 07/30/21 19:51> Lab Data Result diagrams: 07/30/21 11:30 07/30/21 11:30 Labs: Lab Results 07/30/21 07/30/21 07/30/21 Range/Units 11:30 11:30 11:30 WBC 6.0 (4.5-11.0) X10^3/uL RBC 5.58 (4.5-5.9) X10^6/uL Hgb 17.2 (13.5-17.5) g/dL Hct 50.4 (41-53) % MCV 90.2 (80-100) fL MCH 30.7 (26-34) PG MCHC 34.1 (30-36) % RDW 13.6 (11.6-14.8) % Plt Count 294 (150-400) X10^3/uL Neut % (Auto) 48.5 L (50-75) % Lymph % (Auto) 36.7 (25-40) % Vilas % (Auto) 8.9 (3-14) % Eos % (Auto) 5.1 H (2-4) % Baso % (Auto) 0.8 (0-2) % Neut # (Auto) 2900 (0824-6133) /uL Lymph # (Auto) 2200 (3671-5805) /uL Vil[place] # (Auto) 500 (0-900) /uL Eos # (Auto) 300 (0-450) /uL Baso # (Auto) 0 (0-100) /uL PT 10.8 (10.1-12.7) SECONDS INR 1.0 (0.9-1.3) APTT 32 (26.4-36.2) SECONDS Sodium 141 (137-145) mmol/L Potassium 3.9 (3.4-5.1) mmol/L Chloride 102 (98-107) mmol/L Carbon Dioxide 29 (22-32) mmol/L BUN 9 (9-20) mg/dL Creatinine 0.95 (0.66-1.25) mg/dL Estimated GFR > 60.0 (>60) mL/min BUN/Creatinine Ratio 9.5 (6-22) Glucose 98 (70-100) mg/dL Calcium 9.6 (8.4-10.2) mg/dL Magnesium 2.1 (1.6-2.3) mg/dL Total Bilirubin 0.7 (0.2-1.3) mg/dL AST 44 (17-59) IU/L ALT 17 (<50) IU/L Alkaline Phosphatase 63 (38-126) U/L Total Creatine Kinase 555 H (55-170) U/L CK-MB (CK-2) 4.16 H (<2.37) ng/mL CK-MB (CK-2) Rel Index 0.7 L (1.5-5.0) % Troponin I < 0.012 (0.01-0.034) ng/mL Total Protein 8.6 H (6.3-8.2) g/dL Albumin 5.4 H (3.5-5.0) g/dL Globulin 3.2 (1.7-4.1) g/dL Albumin/Globulin Ratio 1.7 (1.0-2.8) Lipase 34 (23-300) U/L SARS-CoV-2 (PCR) (Negative) 07/30/21 Range/Units 11:30 WBC (4.5-11.0) X10^3/uL RBC (4.5-5.9) X10^6/uL Hgb (13.5-17.5) g/dL Hct (41-53) % MCV (80-100) fL MCH (26-34) PG MCHC (30-36) % RDW (11.6-14.8) % Plt Count (150-400) X10^3/uL Neut % (Auto) (50-75) % Lymph % (Auto) (25-40) % Vilas % (Auto) (3-14) % Eos % (Auto) (2-4) % Baso % (Auto) (0-2) % Neut # (Auto) (3574-1453) /uL Lymph # (Auto) (6377-5147) /uL Vilas # (Auto) (0-900) /uL Eos # (Auto) (0-450) /uL Baso # (Auto) (0-100) /uL PT (10.1-12.7) SECONDS INR (0.9-1.3) APTT (26.4-36.2) SECONDS Sodium (137-145) mmol/L Potassium (3.4-5.1) mmol/L Chloride (98-107) mmol/L Carbon Dioxide (22-32) mmol/L BUN (9-20) mg/dL Creatinine (0.66-1.25) mg/dL Estimated GFR (>60) mL/min BUN/Creatinine Ratio (6-22) Glucose (70-100) mg/dL Calcium (8.4-10.2) mg/dL Magnesium (1.6-2.3) mg/dL Total Bilirubin (0.2-1.3) mg/dL AST (17-59) IU/L ALT (<50) IU/L Alkaline Phosphatase (38-126) U/L Total Creatine Kinase (55-170) U/L CK-MB (CK-2) (<2.37) ng/mL CK-MB (CK-2) Rel Index (1.5-5.0) % Troponin I (0.01-0.034) ng/mL Total Protein (6.3-8.2) g/dL Albumin (3.5-5.0) g/dL Globulin (1.7-4.1) g/dL Albumin/Globulin Ratio (1.0-2.8) Lipase (23-300) U/L SARS-CoV-2 (PCR) Negative (Negative) Urine Dip Bedside Urine Glucose Negative Bedside Urine Bilirubin - Negative Bedside Urine Ketone - Negative Urine Specific [place] 1.020 Bedside Urine Occult Blood - Negative Bedside Urine pH 6.0 Bedside Urine Protein - Negative Bedside Urine Urobilinogen - Negative Bedside Urine Nitrite - Negative Bedside Urine Leukocytes - Negative Esterase MDM Narrative Medical decision making narrative: Patient is well-appearing here in the [facility] department. EKG does not show any obvious signs of ischemia. CK-MB was elevated but troponin was normal. Chest x-ray does not show any cardiomegaly or pulmonary abnormalities. Echocardiogram was done to look for cardiomyopathy. Echoe is grossly normal at this time. He does not have any systemic signs of illness or infection at this time. I considered pericarditis, myocarditis, ACS, PE, costochondritis. He has reproducible mild left anterior chest wall tenderness with palpation. Recommend symptomatic therapy at this time with strict ER return precautions should symptoms worsen. Patient verbalizes understanding and agrees to plan and has no further concerns at this time. Thank you A [id number]-[id number] system was used with the dictation of this note. Please disregard any spelling or grammatical errors. <Alea Wong, DO - Last Filed: 08/05/21 00:48> Lab Data Labs: Lab Results 07/30/21 07/30/21 07/30/21 Range/Units 11:30 11:30 11:30 WBC 6.0 (4.5-11.0) X10^3/uL RBC 5.58 (4.5-5.9) X10^6/uL Hgb 17.2 (13.5-17.5) g/dL Hct 50.4 (41-53) % MCV 90.2 (80-100) fL MCH 30.7 (26-34) PG MCHC 34.1 (30-36) % RDW 13.6 (11.6-14.8) % Plt Count 294 (150-400) X10^3/uL Neut % (Auto) 48.5 L (50-75) % Lymph % (Auto) 36.7 (25-40) % Vilas % (Auto) 8.9 (3-14) % Eos % (Auto) 5.1 H (2-4) % Baso % (Auto) 0.8 (0-2) % Neut # (Auto) 2900 (2189-5969) /uL Lymph # (Auto) 2200 (9441-2678) /uL Vilas # (Auto) 500 (0-900) /uL Eos # (Auto) 300 (0-450) /uL Baso # (Auto) 0 (0-100) /uL PT 10.8 (10.1-12.7) SECONDS INR 1.0 (0.9-1.3) APTT 32 (26.4-36.2) SECONDS Sodium 141 (137-145) mmol/L Potassium 3.9 (3.4-5.1) mmol/L Chloride 102 (98-107) mmol/L Carbon Dioxide 29 (22-32) mmol/L BUN 9 (9-20) mg/dL Creatinine 0.95 (0.66-1.25) mg/dL Estimated GFR > 60.0 (>60) mL/min BUN/Creatinine Ratio 9.5 (6-22) Glucose 98 (70-100) mg/dL Calcium 9.6 (8.4-10.2) mg/dL Magnesium 2.1 (1.6-2.3) mg/dL Total Bilirubin 0.7 (0.2-1.3) mg/dL AST 44 (17-59) IU/L ALT 17 (<50) IU/L Alkaline Phosphatase 63 (38-126) U/L Total Creatine Kinase 555 H (55-170) U/L CK-MB (CK-2) 4.16 H (<2.37) ng/mL CK-MB (CK-2) Rel Index 0.7 L (1.5-5.0) % Troponin I < 0.012 (0.01-0.034) ng/mL Total Protein 8.6 H (6.3-8.2) g/dL Albumin 5.4 H (3.5-5.0) g/dL Globulin 3.2 (1.7-4.1) g/dL Albumin/Globulin Ratio 1.7 (1.0-2.8) Lipase 34 (23-300) U/L SARS-CoV-2 (PCR) (Negative) 07/30/21 Range/Units 11:30 WBC (4.5-11.0) X10^3/uL RBC (4.5-5.9) X10^6/uL Hgb (13.5-17.5) g/dL Hct (41-53) % MCV (80-100) fL MCH (26-34) PG MCHC (30-36) % RDW (11.6-14.8) % Plt Count (150-400) X10^3/uL Neut % (Auto) (50-75) % Lymph % (Auto) (25-40) % Vilas % (Auto) (3-14) % Eos % (Auto) (2-4) % Baso % (Auto) (0-2) % Neut # (Auto) (2668-5205) /uL Lymph # (Auto) (3127-2328) /uL Vilas # (Auto) (0-900) /uL Eos # (Auto) (0-450) /uL Baso # (Auto) (0-100) /uL PT (10.1-12.7) SECONDS INR (0.9-1.3) APTT (26.4-36.2) SECONDS Sodium (137-145) mmol/L Potassium (3.4-5.1) mmol/L Chloride (98-107) mmol/L Carbon Dioxide (22-32) mmol/L BUN (9-20) mg/dL Creatinine (0.66-1.25) mg/dL Estimated GFR (>60) mL/min BUN/Creatinine Ratio (6-22) Glucose (70-100) mg/dL Calcium (8.4-10.2) mg/dL Magnesium (1.6-2.3) mg/dL Total Bilirubin (0.2-1.3) mg/dL AST (17-59) IU/L ALT (<50) IU/L Alkaline Phosphatase (38-126) U/L Total Creatine Kinase (55-170) U/L CK-MB (CK-2) (<2.37) ng/mL CK-MB (CK-2) Rel Index (1.5-5.0) % Troponin I (0.01-0.034) ng/mL Total Protein (6.3-8.2) g/dL Albumin (3.5-5.0) g/dL Globulin (1.7-4.1) g/dL Albumin/Globulin Ratio (1.0-2.8) Lipase (23-300) U/L SARS-CoV-2 (PCR) Negative (Negative) Urine Dip Bedside Urine Glucose Negative Bedside Urine Bilirubin - Negative Bedside Urine Ketone - Negative Urine Specific [place] 1.020 Bedside Urine Occult Blood - Negative Bedside Urine pH 6.0 Bedside Urine Protein - Negative Bedside Urine Urobilinogen - Negative Bedside Urine Nitrite - Negative Bedside Urine Leukocytes - Negative Esterase Imaging Data Chest x-ray: Radiologist's Impression: Hunter Avalos?(Hunter)??25??M??1995 ? Allergy/Adv: No Known Drug Allergies (More??) Close Chest X-Ray (Signed) Jim Gallagher - 07/30/21 Ribs X-Ray (Signed) Javier Burns - 07/18/18 Chest X-Ray (Signed) Javier Burns - 07/18/18 Radiology - Historical 01/19/18 Launch?[address] [address] XRay Report Signed Patient: Hunter Avalos MR#: [id number] : 1995 Acct:[id number] Age/Sex: 25 / M Date of Service: 07/30/21 Loc: ED Accession Number: [id number] ?? Procedure: XR chest 1V Ordering Provider: Mank,Alea C D.O. PROCEDURE:? XR CHEST 1V ? INDICATIONS:? chest pain ? TECHNIQUE:? One view of the chest was acquired.? ? COMPARISON:? [facility], CR, XR CHEST 2V, 07/18/2018, 14:57. ? FINDINGS:? ? Surgical changes and devices:? None.? ? Lungs and pleura:? Lungs are clear.? No pleural effusions or pneumothorax.? ? Mediastinum:? Mediastinal contours appear normal.? Heart size is normal.? ? Bones and chest wall:? No suspicious bony lesions.? Overlying soft tissues ap pear unremarkable.? ? IMPRESSION:? ? Portable chest within normal limits. ? ? ? Dictated by: Jim Gallagher M.D. on 07/30/2021 at 11:07 ? ? Approved by: Jim Gallagher M.D. on 07/30/2021 at 11:07 ECG Data Attestation: I personally reviewed and interpreted this ECG as follows: Prior ECG tracings: not available for review Interpretation: Sinus rhythm, Q-wave in 2 3 AVF no other acute ST changes appreciated. No priors available for comparison. Rate of 78 CO 130, QRS of 102 and QTC of 417. Discharge Plan Departure Patient Disposition: Home Clinical Impression: Chest pain Qualifiers: Chest pain type: unspecified Qualified Code(s): R07.9 - Chest pain, unspecified Instructions: DI for Atypical Chest Pain Activity Restrictions/Additional Instructions: It was nice to meet you this afternoon. Your evaluation has been reassuring. I suspect that this is due to the methamphetamine that was used a few days ago. Please try to abstain from this. I expect your symptoms to improve over the next few days. Can take anti-inflammatories like ibuprofen as needed to help with your symptoms. If you developed fever, worsening chest pain, difficulty breathing or have any other acute concerns or complaints do not hesitate to return for re-evaluation. Thank you Steven Douglas PA-C Prescriptions: No Action No Known Home Medications RF: 0 Referrals: Renzo Bojorquez MD [Primary Care Provider] - <Alea Wong DO - Last Filed: 08/05/21 00:48> Cosign ED Attending Cosignature Attestation: [facility] Documentation has been reviewed. Case was discussed with myself.
--- NOTE | 2021-07-30 12:32 | DI.ECHO.S_ITS ---
[place] [facility]---------+ [facility] +---------+ : : [address] : : : : [phone] : : : : Phone: [phone]+ Echocardiogram Report + + :Name: LANA CONTRERAS Study Date: 07/30/2021 Height: 71 in : :[facility] ReadingLocation: Weight: 190 lb: : Gender: Male BSA: 2.1 m2 : :: 1995 Age: 25 yrs : :Reason For Study: Chest pain, meth use : : Performed By: ROYA LAST : :Referring: SUKH LARA : + + Interpretation Summary Limited Echo: 1) Grossly normal left ventricular size with low normal systolic function (EF 50-55%). 2) There are no focal wall motion abnormalities. 3) The right ventricle is grossly normal size. Right ventricular systolic function is at the lower limits of normal. 4) No prior echo available for comparison. Procedure: A two-dimensional transthoracic echocardiogram with color flow and Doppler was performed in limited views only to assess LVEF. The study quality was technically adequate. There is no prior echocardiogram noted for this patient. Patient claimed he could not tolerate this exam. The patient was in normal sinus rhythm during the exam. Left Ventricle: The left ventricle is grossly normal size. The ejection fraction is estimated to be 50-55%. There are no focal wall motion abnormalities. Right Ventricle: The right ventricle is grossly normal size. Right ventricular systolic function is at the lower limits of normal. Pericardium/ Pleura There is no pericardial effusion. There is no pleural effusion. Reading Physician:01:27 PM
[2021-07-30 12:36] VITALS: BP 132/86; PULSE 85; O2SAT 98
[2021-07-30 13:00] VITALS: BP 132/86; PULSE 74; RESP 17; O2SAT 100
[2021-07-30 13:28] VITALS: BP 122/69; PULSE 79; RESP 17; O2SAT 97
[2021-07-30 13:30] VITALS: BP 112/70; PULSE 77; RESP 14; O2SAT 99
[2021-07-30 14:00] VITALS: BP 123/83; PULSE 75; RESP 20; O2SAT 98
== END 2021-07-30 14:09 | disposition home or self-care (01) ==
PROVIDERS: Emergency Medicine; Emergency Provider Physician Assistant; Family Provider Pediatrics; PCP Pediatrics
DX: R07.9 Chest pain, unspecified (principal); I10 Essential (primary) hypertension; Z20.822 Contact with and (suspected) exposure to COVID-19
CPT/HCPCS: 36415; 71045; 80053; 81003; 82550; 82553; 83690; 83735; 84484; 85025; 85610; 85730; 87635; 93005; 93307; 99284; C9803

== ENCOUNTER 2021-09-25 13:05 | Emergency (ER) | payer BC, SELFPAY ==
[2021-09-25 13:13] VITALS: BP 142/72; PULSE 92; RESP 18; TEMP 37.2; O2SAT 98; BMI 26.7
--- NOTE | 2021-09-25 13:18 | DI.RAD.S_ITS ---
PROCEDURE: XR CHEST 2V INDICATIONS: cough/sob/fever TECHNIQUE: 2 views of the chest were acquired. COMPARISON: [facility], , XR CHEST 1V, 07/30/2021, 11:50. FINDINGS: Surgical changes and devices: None. Lungs and pleura: Lungs are clear. No pleural effusions or pneumothorax. Mediastinum: Mediastinal contours are normal. Heart size is normal. Bones and chest wall: No suspicious bony abnormalities. Soft tissues appear unremarkable. IMPRESSION: 1. No acute cardiopulmonary disease. Dictated by: Carlton Velez M.D. on 09/25/2021 at 13:12 Approved by: Carlton Velez M.D. on 09/25/2021 at 13:13
[2021-09-25 13:41] LABS: COVID19 -Nasal RAPID Negative (Negative)
--- NOTE | 2021-09-25 15:32 | ED.URI ---
HPI - URI/Sore Throat General Chief Complaint: Upper Respiratory Symptoms Stated Complaint: DIFFICULTY BREATHING, AROUND CHEMICALS AT WORK Time Seen by Provider: 09/25/21 15:32 Source: patient Mode of arrival: Ambulatory Limitations: no limitations History of Present Illness HPI Narrative: Patient is a 25-year-old male who presents with body aches head make fever and cough. Symptoms started today work. He said he felt better yesterday but having got suddenly worse today. Mild shortness of breath. He is not vaccinated for COVID. He takes no medications. Related Data Home Medications Medication Instructions Recorded Confirmed No Known Home Medications 07/30/21 07/30/21 Allergies Allergy/AdvReac Type Severity Reaction Status Date / Time No Known Drug Allergies Allergy Verified 07/30/21 11:20 Review of Systems Review of Systems Narrative: GENERAL: See HPI HEENT: Denies throat pain RESPIRATORY: See HPI CARDIOVASCULAR: Denies chest pain, palpitations GASTROINTESTINAL: Denies nausea, vomiting MUSCULOSKELETAL: Denies extremity pain, injury SKIN: No rash, no laceration, no pruritus NEUROLOGIC: Denies weakness, dizziness, headache, numbness 8 point review of systems is negative except for those stated above and HPI Patient History Medical History (Updated 09/25/21 @ 15:44 by Tammy Britt DO) Alcohol abuse Anxiety with depression Multiple substance abuse Surgical History History of hand surgery Social History Smoking Status: Current every day smoker Smoking Status: Current every day smoker tobacco type: cigarettes alcohol intake frequency: a few times a month Substance Use Type: does not use Exam Initial Vital Signs Initial Vital Signs: Vital Signs Temperature 99.0 F 09/25/21 13:13 Pulse Rate 92 H 09/25/21 13:13 Respiratory Rate 18 09/25/21 13:13 Blood Pressure 142/72 H 09/25/21 13:13 Pulse Oximetry 98 09/25/21 13:13 GENERAL: Well-appearing 25-year-old male and in no acute distress. HEENT: Head atraumatic,EOMI, pupils reactive, face symmetric, moist mucous membranes CARDIOVASCULAR: Regular rate and rhythm without murmurs, rubs or gallops. RESPIRATORY: Breath sounds equal bilaterally, no wheezes rales or rhonchi. EXTREMITIES: Normal range of motion, no clubbing or edema. Neurovascularly intact NEUROLOGICAL: Alert and oriented x4.Normal gait and speech. SKIN: Warm, dry, no laceration, no petechiae, no rashes or lesions. Course Orders Ordered: ED Orders 09/25/21 13:17 COVID19 -Nasal swab/Pre-Proc Stat 09/25/21 13:18 XR chest 2V Stat Vital Signs Vital signs: Vital Signs - 8 hr 09/25/21 13:13 Temperature 99.0 F Pulse Rate 92 H Respiratory Rate 18 Blood Pressure 142/72 H Pulse Oximetry 98 [facility] - URI/Sore Throat Lab Data Labs: Lab Results 09/25/21 Range/Units 13:17 SARS-CoV-2 (PCR) Negative (Negative) Imaging Data Chest x-ray: Radiologist's Impression: PROCEDURE:? XR CHEST 2V ? INDICATIONS:? cough/sob/fever ? TECHNIQUE:? 2 views of the chest were acquired.? ? COMPARISON:? [facility], , XR CHEST 1V, 07/30/2021, 11:50. ? FINDINGS:? ? Surgical changes and devices:? None.? ? Lungs and pleura:? Lungs are clear.? No pleural effusions or pneumothorax.? ? Mediastinum:? Mediastinal contours are normal.? Heart size is normal.? ? Bones and chest wall:? No suspicious bony abnormalities.? Soft tissues appear unremarkable.? ? IMPRESSION:? ? 1.? No acute cardiopulmonary disease. ? ? ? Dictated by: Carlton Velez M.D. on 09/25/2021 at 13:12 ? ? [facility] Narrative Medical decision making narrative: The patient overall appears well. He tested negative for COVID today however discussed with him he probably needs repeat testing in about 4-5 days educated him on how and where at some testing and walk-in clinic. And also when to return to ED when and if he does test positive for COVID Discharge Plan Departure Patient Disposition: Home Clinical Impression: Upper respiratory infection Instructions: DI for COVID-19 (Suspected or Confirmed ) Activity Restrictions/Additional Instructions: * if you have not yet been vaccinated is still recommended and encouraged that you do so once your infection has passed * you tested negative for COVID today however is strongly recommended that you be retested for COVID and about 4-5 days. You may buy a home test or go to walk-in clinic. At home: -Monitor oxygen with pulse oximeter. If less than 90% for more than 1 hour please return to emergency department -I recommend lying on stomach for side rather than back, it has been proven to increase oxygen levels -Wash hands frequently. -Stay isolated at home please follow the isolation instructions below. -Increase fluid intake. -you may take Tylenol as directed if needed for pain or fever Emergency warning signs for COVID-19: - Difficulty breathing or shortness of breath, oxygen less than 90% - Persistent pain or pressure in the chest - New confusion or inability to arouse - Bluish lips or face CDC Guidelines for home isolation: - Stay away from others - Limit contact with pets and animals: If you must care for a pet, wash your hands before and after interacting with them - Wear a mask while in public all places - Cover your mouth and nose with a tissue when you cough or sneeze. Dispose of tissues in a lined trash can and wash your hands immediately with soap and water for at least 20 seconds. If soap and water are not available, clean hands with alcohol-based hand edging machine operator that contains at least 60% alcohol. - Clean your hands often with soap and water for at least 20 seconds - Avoid touching your eyes, nose and mouth with unwashed hands - Do not share dishes, drinking glasses, cups, eating utensils, towels, or bedding with other people in your home. After using these items, wash them thoroughly with soap and water or put in the rubber printing machine operator. - Clean high-touch surfaces in your isolation area (?sick room? and bathroom) every day; let a caregiver clean and disinfect high-touch surfaces in other areas of the home. Clean the area or item with soap and water or another detergent if it is dirty. Then, use a household disinfectant. Prescriptions: No Action No Known Home Medications 0RF Referrals: [facility] Resources [Outside] Renzo Boojrquez MD [Primary Care Provider] -
[2021-09-25 16:13] VITALS: BP 126/77; PULSE 79; RESP 18; O2SAT 98
== END 2021-09-25 16:13 | disposition home or self-care (01) ==
PROVIDERS: Emergency Provider Emergency Medicine; Family Provider Pediatrics; PCP Pediatrics
DX: J06.9 Acute upper respiratory infection, unspecified (principal); F17.210 Nicotine dependence, cigarettes, uncomplicated; Z20.822 Contact with and (suspected) exposure to COVID-19
CPT/HCPCS: 71046; 87635; 99283; C9803

== ENCOUNTER 2021-10-15 06:05 | Emergency (ER) | payer BC, SELFPAY ==
[2021-10-15 06:05] VITALS: BP 142/85; PULSE 86; RESP 26; TEMP 36.9; O2SAT 100; BMI 24.3
--- NOTE | 2021-10-15 06:06 | DI.RAD.S_ITS ---
PROCEDURE: XR CHEST 1V INDICATIONS: Shortness of breath TECHNIQUE: One view of the chest was acquired. COMPARISON: [facility], CR, XR CHEST 2V, 09/25/2021, 13:12. FINDINGS: Surgical changes and devices: None. Lungs and pleura: Lungs are clear. No pleural effusions or pneumothorax. Mediastinum: Mediastinal contours appear normal. Heart size is normal. Bones and chest wall: No suspicious bony lesions. Overlying soft tissues appear unremarkable. IMPRESSION: No acute cardiopulmonary abnormality. Dictated by: Rehan Pavon M.D. on 10/15/2021 at 8:28 Approved by: Rehan Pavon M.D. on 10/15/2021 at 8:28
--- NOTE | 2021-10-15 06:07 | ED.GENADULT ---
HPI - General Adult General Chief complaint: Toxicology Problem Stated complaint: SOB Time Seen by Provider: 10/15/21 06:06 Source: patient Mode of arrival: EMS History of Present Illness HPI narrative: Patient is a 25-year-old male who arrived by EMS for evaluation of shortness of breath. He also states that he thinks that he overdosed on meth. Several hours prior to calling EMS he snorted methamphetamine. This is not the 1st time that he has partaken in this drug. Afterwards he has shortness of breath and chest discomfort and lightheadedness. Was also hyperventilating. EMS contacted. Vital signs are unremarkable. EMS reports that he told them that he did meth ?all day yesterday ?but he told me it was just last evening. EKG obtained prior to arrival. Related Data Home Medications Medication Instructions Recorded Confirmed No Known Home Medications 07/30/21 07/30/21 Allergies Allergy/AdvReac Type Severity Reaction Status Date / Time No Known Drug Allergies Allergy Verified 07/30/21 11:20 Review of Systems Constitutional Constitutional: Denies fever(s) and Denies frequent falls Eyes Eyes: Reports system reviewed and no additional complaints, except as documented Cardiovascular Cardiovascular: Reports as per HPI and Reports system reviewed and no additional complaints, except as documented Respiratory Respiratory: Reports as per HPI and Reports system reviewed and no additional complaints, except as documented Gastrointestinal Gastrointestinal: Reports system reviewed and no additional complaints, except as documented, Reports nausea and Denies vomiting Genitourinary Genitourinary: Reports system reviewed and no additional complaints, except as documented Integumentary/Breasts Skin/Breast: Reports system reviewed and no additional complaints, except as documented Neurologic Neurologic: Reports system reviewed and no additional complaints, except as documented and Denies frequent falls Hematologic/Lymphatic On Anticoagulants: No Allergic/Immunologic Allergic/Immunologic: Reports system reviewed and no additional complaints, except as documented Patient History Medical History (Updated 10/15/21 @ 06:46 by Arben Oliver DO) Alcohol abuse Anxiety with depression Multiple substance abuse Surgical History History of hand surgery Social History Smoking Status: Current every day smoker Smoking Status: Current every day smoker tobacco type: cigarettes alcohol intake frequency: a few times a month Substance Use Type: does not use Exam Initial Vital Signs Initial Vital Signs: Vital Signs Temperature 98.4 F 10/15/21 06:05 Pulse Rate 86 10/15/21 06:05 Respiratory Rate 26 H 10/15/21 06:05 Blood Pressure 142/85 H 10/15/21 06:05 Pulse Oximetry 100 10/15/21 06:05 Const General: cooperative Limitations: mental status not altered HENMT Head: normal to inspection and normocephalic Resp Effort & Inspection: normal respiratory effort Auscultation: clear to auscultation bilaterally Cardio Rate: regular rate Rhythm: regular rhythm GI Inspection: non-distended Palpation: soft Skin General: no rashes or lesions noted Neuro General: patient alert, patient awake and moves all extremities Extrem General: normal to inspection and capillary refill normal Psych Appearance: disheveled Course Orders Ordered: ED Orders 10/15/21 06:06 XR chest 1V Stat 10/15/21 06:20 EKG-12 Lead Stat Vital Signs Vital signs: Vital Signs - 8 hr 10/15/21 06:05 10/15/21 06:45 10/15/21 07:00 Temperature 98.4 F Pulse Rate 86 94 H 90 Respiratory Rate 26 H 18 18 Blood Pressure 142/85 H Pulse Oximetry 100 100 100 Medical Decision Making Imaging Data Chest x-ray: Radiologist's Impression: No acute finding ECG Data Attestation: I personally reviewed and interpreted this ECG as follows: Prior ECG tracings: not available for review Interpretation: Sinus rhythm Ventricular rate 86 Normal axis Normal QRS Normal QTC No ST T wave changes MDM Narrative Medical decision making narrative: Patient's chest x-ray an EKG is unremarkable. Vital signs unremarkable. I suspect his symptoms today are related to the methamphetamine. Low suspicion for ACS. Low suspicion for pneumonia. Patient has been calm and sleeping but when he awakens he does seem fairly anxious. Care turned over to Dr. Wong to disposition when patient is awake. Discharge Plan Departure Patient Disposition: Home Clinical Impression: Methamphetamine abuse Instructions: Substance Use Disorder Activity Restrictions/Additional Instructions: Your chest x-ray an EKG here in the emergency department is very reassuring. I suspect that your symptoms are related to your use of methamphetamine. No driving for the next 24 hours or the future if you partake in intoxicating substances. Contact your primary doctor for follow-up. Return to the emergency department for any new or worsening symptoms. Prescriptions: No Action No Known Home Medications 0RF Referrals: Renzo Bojorquez MD [Primary Care Provider] -
[2021-10-15 06:45] VITALS: PULSE 94; RESP 18; O2SAT 100
[2021-10-15 07:00] VITALS: PULSE 90; RESP 18; O2SAT 100
--- NOTE | 2021-10-15 07:35 | PC.NURSE ---
pt ambulatory to restroom, no assistance, steady gate, resp even unlabored nad.
== END 2021-10-15 07:55 | disposition home or self-care (01) ==
PROVIDERS: Emergency Provider Emergency Medicine; Family Provider Pediatrics; PCP Pediatrics
DX: F15.10 Other stimulant abuse, uncomplicated (principal); R06.02 Shortness of breath; R07.9 Chest pain, unspecified
CPT/HCPCS: 71045; 93005; 99284